=== PATIENT | male | born 1950 | race Hispanic/Latino ===

== ENCOUNTER 2022-01-08 06:46 | Day surgery (SDC) | payer OTHER ==
[2022-01-06 14:56] LABS: POTASSIUM 3.9 mmol/L (3.5-5.1)
[2022-01-07 13:10] VITALS: BP 174/80
[~2022-01-08] VITALS: Ht 162.6 cm; Wt 71.6 kg
[2022-01-08] VITALS (18 sets, daily range): BP systolic 124–146; BP diastolic 48–79
[~2022-01-08 06:46] MED LIST: CEFTRIAXONE 1G VIAL IVP SCH
[2022-01-08] MEDS ORDERED: LACTATED RINGERS 1000ML 1,000 ML IV ONE (07:23)
[2022-01-08 07:35] LABS: HEMATOCRIT 39.7 % (42-54); MEAN CORPUSCULAR VOLUME 94.1 fL (79-99); PLATELET COUNT (AUTO) 143 K/uL (130-400); RED BLOOD CELL COUNT(AUTO) 4.22 MIL/uL (4.50-6.20); RED CELL DISTRIBUTION WIDTH 12.7 % (11.0-15.5); WHITE BLOOD COUNT (AUTO) 5.5 K/uL (4.8-10.8)
[2022-01-08 08:29] LABS: BASOPHILS % (MANUAL) 1 % (0-2); EOSINOPHILS % (MANUAL) 1 % (1-6); LYMPHOCYTES % (MANUAL) 36 % (22-44); MAN.DIFF COMMENT-IMPRESSION MANUAL DIFFERENTIAL; MONOCYTES % (MANUAL) 10 % (2-9); PLATELET MORPHOLOGY COMMENT ADEQUATE; SEGMENTED NEUTROPHILS % 52 % (40-70)
[2022-01-08] MEDS ORDERED: TAMS-1 PO (08:58)
[2022-01-08] MEDS ORDERED: FINA5TAB41 PO (08:58)
[2022-01-08] MEDS ORDERED: LISI10TA24 PO (08:58)
[2022-01-08] MEDS ORDERED: SIMV-43 PO (08:58)
[2022-01-08] MEDS ORDERED: MIDAZOLAM HCL 1 MG/ML 2ML VIAL ONE (09:43)
[2022-01-08] MEDS ORDERED: CEFTRIAXONE 1G VIAL IVP ONE (09:43)
[2022-01-08] MEDS ORDERED: SUCCINYLCHOLINE 200MG/10ML SYR ONE (09:43)
[2022-01-08] MEDS ORDERED: ROCURONIUM 10MG/1ML SYR 10 MG/ML ML ONE (09:44)
[2022-01-08] MEDS ORDERED: FENTANYL CITRATE PF 50 MCG/1 ML 2ML VIAL ONE (09:44)
[2022-01-08] MEDS ORDERED: PROPOFOL 10 MG/ML 20ML VIAL IV ONE (09:44)
[2022-01-08] MEDS ORDERED: GLYCOPYRROLATE 1 MG/5 ML SYRINGE ONE (10:11)
[2022-01-08] MEDS ORDERED: OPIUM/BELLADONNA ALKALOIDS 1 EACH SUPP.RECT RC ONE ×2 (10:58→11:38)
[2022-01-08] MEDS ORDERED: MEPERIDINE-PF 25 MG/ML SYG ONE (12:20)
[2022-01-08] MEDS ORDERED: PHENAZOPYRIDINE HCL 200 MG TABLET ONE (13:25)
[2022-01-08] MEDS ORDERED: PHENAZOPYRIDINE HCL 200 MG TABLET PO SCH (14:00)
== END 2022-01-08 14:15 | disposition home or self-care (01) ==
LOC: DAH 06:46
PROVIDERS: ATTEND Urology
DX: N40.1 Benign prostatic hyperplasia with lower urinary tract symptoms (principal); R33.8 Other retention of urine; R39.14 Feeling of incomplete bladder emptying; E03.9 Hypothyroidism, unspecified; Z98.890 Other specified postprocedural states; Z87.891 Personal history of nicotine dependence; Z79.899 Other long term (current) drug therapy
CPT/HCPCS: 80048; 87426; 36415 ×2; 93005; 52648; 85025; A4663; A4354; A4340; J7120; J3010; J0330; J3490; J0696 ×2; J2250; J2704; J2175; A4358 ×2; A4215; A4223; A6402; A4222; A4221; A4335 ×2; A4554; A4600; A4510